=== PATIENT | male | born 1980 | race Caucasian/White ===

== ENCOUNTER 2017-11-20 09:01 | Outpatient (CLI) | END 2017-11-20 09:15 | disposition short-term general hospital (02) | LOC: AMBL 09:01 | PROVIDERS: ATTEND Emergency Medicine | DX: R56.9 Unspecified convulsions (principal); R00.0 Tachycardia, unspecified; R11.0 Nausea; R41.0 Disorientation, unspecified; Z86.73 Personal history of transient ischemic attack (TIA), and cerebral infarction without residual deficits ==